=== PATIENT | male | born 1980 ===

== ENCOUNTER 2025-03-04 06:22 | Day surgery (SDC) | payer OTHER, SELFPAY | END 2025-03-04 14:40 | disposition home or self-care (01) | LOC: GI 06:22 | PROVIDERS: ATTENDING PHYSICIAN Internal Medicine Gastroenterology | DX: Z12.11 Encounter for screening for malignant neoplasm of colon (principal); K64.8 Other hemorrhoids; D12.2 Benign neoplasm of ascending colon | CPT/HCPCS: 45380; 88305 ==